=== PATIENT | male | born 1990 | race Caucasian/White ===

== ENCOUNTER 2022-01-06 13:09 | Emergency (ER) | payer OTHER ==
[2022-01-06 13:22] VITALS: RESP 18
--- NOTE | 2022-01-06 14:08 | ED ---
Back Pain HPI - General Chief Complaint: Back Pain/Injury Stated Complaint: fall 6-8 feet Time Seen by Provider: 01/06/22 13:29 Source: patient - History of Present Illness Initial Comments: patient is a 31-year-old male who presents with a chief complaint of back pain due to fall. Patient was on a ladder when he fell backward approx 6-8 feet and landed on his back onto a piece of wood. The fall was witnessed. Patient did not lose consciousness. He is not on blood thinners. Patient states his back took most of the impact however does admit to head hitting the ground. he denies headache, blurry vision, double vision , nausea, vomiting. reports mild back pain in his middle to lower back. Took motrin with relief. Denies weakness, numbness, and tingling in the lower extremities. Denies numbness and tingling in the groin region.Denies loss of bowel or bladder function. Denies chest pain, SOB. - Related Data Allergies Allergy/AdvReac Type Severity Reaction Status Date / Time No Known Allergies Allergy Verified 01/06/22 13:22 Review of Systems ROS Statement: Those systems with pertinent positive or pertinent negative responses have been documented in the HPI. ROS Other: All systems not noted in ROS Statement are negative. Past Medical History Past Medical History: No Reported History History of Any Multi-Drug Resistant Organisms: None Reported Past Surgical History: Orthopedic Surgery Past Psychological History: No Psychological Hx Reported Smoking Status: Never smoker Past Alcohol Use History: None Reported Past Drug Use History: None Reported General Exam General appearance: alert, in no apparent distress Head exam: Present: atraumatic, normocephalic, normal inspection Eye exam: Present: normal appearance, PERRL, EOMI. Absent: scleral icterus, conjunctival injection, periorbital swelling Neck exam: Present: normal inspection. Absent: tenderness, meningismus, lymphadenopathy Respiratory exam: Present: normal lung sounds bilaterally. Absent: respiratory distress, wheezes, rales, rhonchi, stridor Cardiovascular Exam: Present: regular rate, normal rhythm, normal heart sounds. Absent: systolic murmur, diastolic murmur, rubs, gallop, clicks Extremities exam: Present: normal inspection Back exam: Present: paraspinal tenderness, vertebral tenderness (lower thoracic/upper lumbar ). Absent: normal inspection (scrape along vertebrae in lower lumbar/sacral region ) Neurological exam: Present: alert, oriented X3, CN II-XII intact Psychiatric exam: Present: normal affect, normal mood Skin exam: Present: warm, dry, intact, normal color. Absent: rash Course Vital Signs 01/06/22 01/06/22 13:20 16:53 Temperature 97.6 F 98.7 F Pulse Rate 82 85 Respiratory 18 18 Rate Blood Pressure 121/77 131/72 O2 Sat by Pulse 98 96 Oximetry Medical Decision Making - Medical Decision Making This is a 31-year-old male who presents with back pain after fall. patient well- appearing and has minimal pain. He walks around the room during my evaluation. No cauda equina symptoms. Patient declined chest x-ray. Lumbosacral x-ray shows T12 compression fracture with superior anterior endplate component. CT of the thoracic spine without contrast shows compression type fracture involving the anterior superior endplate with approx 25% height loss anteriorly noted. CT of the brain and C- spine without contrast is negative for acute process. Case discussed with Dr. Mendez. Despite fall from 6-8 weeks patient has minimal pain and no neurological symptoms or deficit. Patient will be discharged with TSLO prescription. Compression fracture education provided. Patient to keep brace on until orthopedic evaluation. Dr. Coles is my attending. Disposition Clinical Impression: Fall, Mechanical back pain, T12 compression fracture Disposition: HOME SELF-CARE Condition: Good Instructions (If sedation given, give patient instructions): Vertebral Compression Fracture (ED), Acute Low Back Pain (ED) Additional Instructions: Please keep back brace on during any activity until orthopedic evaluation. Follow-up with operations support specialist in 1-2 days. Avoid activities that involve twisting, bending, and excessive movement of the back. elena anti-inflammatory medication such as Motrin for pain. Applying ice or heat may help symptoms. Use home prescription of muscle relaxers as needed. Do not drink alcohol or drive while taking muscle relaxers as they can make you sleepy. Follow-up with primary care provider in one to 2 days. Return to the emergency department experience new, concerning, or worsening symptoms. Is patient prescribed a controlled substance at d/c from ED?: No Referrals: None,Stated [Primary Care Provider] - 1-2 days Jony Ngo, [Doctor of Osteopathic Medicine] - 1-2 days Time of Disposition: 14:08
--- NOTE | 2022-01-06 14:16 | XR ---
EXAMINATION TYPE: XR lumbosacral spine min 4V DATE OF EXAM: 01/06/2022 CLINICAL HISTORY: pain COMPARISON: NONE TECHNIQUE: Frontal, lateral, and oblique images of the lumbar spine are obtained. FINDINGS: There is superior endplate compression fracture involving the T12 vertebral segment with lo ss of height estimated at 10%. There is a superior anterior endplate fracture component noted as well . No additional fractures are seen within the [id number]. No plain film evidence for retropulsion. Correlate clinically. Consider CT if felt to be indicated. IMPRESSION: T12 compression fracture with superior anterior endplate component.
--- NOTE | 2022-01-06 15:50 | CT ---
EXAMINATION TYPE: CT brain maddie hurst con DATE OF EXAM: 01/06/2022 COMPARISON: NONE HISTORY: Fall injury with headache and neck pain CT DLP: 1539.8 mGycm. Automated Exposure Control for Dose Reduction was Utilized. TECHNIQUE: CT scan of the head and cervical spine are performed without contrast. FINDINGS: There is no acute intracranial hemorrhage, mass effect, or midline shift identified. The ventricles and sulci are within normal limits in size. Cruz-white matter differentiation is maintain ed. The calvarium is intact. The globes are intact and the visualized sinuses are clear. Cervical spine is visualized in its entirety from C1 through upper thoracic levels and demonstrates s atisfactory alignment without evidence of acute fracture or dislocation. Prevertebral soft tissue ap pears within normal limits. The C1-C2 articulation is within normal limits on the coronal images. Th ere is slight S-shaped scoliotic curvature on the coronal images. Vertebral body heights and disc sp sonja heights are maintained. Spinal canal is preserved. Axial images show no suspicious abnormality. T hyroid gland is within normal limits. IMPRESSION: 1. There is no acute fracture or dislocation evident in the cervical spine. 2. No acute intracranial hemorrhage, mass effect, or midline shift is seen.
--- NOTE | 2022-01-06 15:54 | CT ---
EXAMINATION TYPE: CT thoracic spine wo con DATE OF EXAM: 01/06/2022 COMPARISON: Same day lumbar spine x-ray. HISTORY: T12 compression fracture after fall. Abnormal lumbar spine x-ray. Pain after fall injury. CT DLP: 1061 mGycm Automated exposure control for dose reduction was used. FINDINGS: Acute compression type fracture involving the anterior superior T12 endplate is confirmed as suspecte d on recent x-ray. Alignment is straightened on sagittal images with slight S-shaped scoliosis on the coronal images. Spinal canal grossly preserved with no posterior vertebral body extension identified . Some horizontal sclerosis and coronal images through the superior T12 vertebra is noted raising con cern for possible subacute fracture. Remainder of thoracic spine is unremarkable. Visualized lungs ar e clear. Visualized upper abdomen shows no suspicious abnormality. Visualized ribs are intact. IMPRESSION: Acute or subacute compression type fracture involving the anterior superior T12 endplate with approximate 25% height loss anteriorly noted.
[2022-01-06 16:54] VITALS: BP 131/72; PULSE 85; TEMP 98.7
== END 2022-01-06 16:53 | disposition home or self-care (01) ==
LOC: EC 13:09
DX: S22.080A Wedge compression fracture of T11-T12 vertebra, initial encounter for closed fracture (principal); W11.XXXA Fall on and from ladder, initial encounter
CPT/HCPCS: 70450; 72110; 72125; 72128; 99284